=== PATIENT | female | born 1945 | race Caucasian/White ===

== ENCOUNTER → 2016-07-27 | Outpatient (CLI) | payer OTHER ==
[~2016-07-27] MED LIST: CHOL100027 PO; CLB100 PO; CLC100 PO; ENAL10TA88 PO; FRS/40 PO; HYDR-5688 PO; LORA0.5T12 PO; METO50TA7 PO; OXYC-57 PO; PANT40TA PO; [UNRECOGNIZED DRUG - CODE] PO
--- NOTE | 2016-07-27 10:36 | DIAGNOSTIC IMAGING REPORT ---
LEG LENGTH STUDY (WHOLE LEG) CLINICAL HISTORY: LUMBAGO, AMBULATORY Dysfunction, leg LENGTH DISCREPANCY COMPARISON STUDY: No previous studies for comparison. 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 The right lower extremity as measured from the femoral head to the tibial plafond measures 875 mm. The left lower extremity as measured from the femoral head to the tibial plafond measures 867 mm. IMPRESSION: Minor leg length discrepancy with the right lower extremity measuring 8 mm longer than the left. Electronically signed by: Rene Holm M.D. 07/27/2016 10:34 AM Dictated Date/Time: 07/27/2016 10:32 AM
== END | disposition home or self-care (01) ==
LOC: C.RADBC 10:08
PROVIDERS: ATTEND Anesthesiology
DX: M21.70 Unequal limb length (acquired), unspecified site (principal); M54.5 Low back pain; R26.9 Unspecified abnormalities of gait and mobility